=== PATIENT | female | born 1950 | race Caucasian/White ===

== ENCOUNTER → 2016-08-19 | Outpatient (CLI) | payer OTHER, MEDICARE ==
[~2016-08-19] MED LIST: ATEN50TA PO; CARI350T PO; ESTR2TAB4 PO; LEVO100T7 PO; PARO20TA5 PO; TRAZ100T92 PO; [UNRECOGNIZED DRUG - CODE] PO
--- NOTE | 2016-08-22 18:56 | Diagnostic Imaging Report ---
Bilateral screening mammogram The current study was also evaluated with a Computer Aided Detection (CAD) system. Indication: Screening. No current complaints stated on the questionnaire. COMPARISON: 05/15/15. FINDINGS: The breasts are composed of scattered fibroglandular densities. There is postbiopsy changes with biopsy clip and mass in the lateral aspect of the left breast seen. It appears slightly more prominent compared to the 05/15/2015 and related to postbiopsy changes. 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 There is also suggestion of a focus of intraductal papilloma The right breast demonstrates no adverse development. IMPRESSION: Essentially stable mass in the lateral aspect of the left breast with postbiopsy changes seen. 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 Correlate clinically. ACR BI-RADS Category 2: Benign findings. Result letter will be mailed to the patient. Note: At least 10% of breast cancer is not imaged by mammography. Dictated by: Dictated on workstation # [id number]
== END ==
LOC: RAD 13:47
PROVIDERS: ATTEND Physician Assistant
DX: Z12.31 Encounter for screening mammogram for malignant neoplasm of breast (principal)
CPT/HCPCS: 77067

== ENCOUNTER → 2017-09-01 | Outpatient (CLI) | payer OTHER, MEDICARE ==
--- NOTE | 2017-09-04 12:21 | Diagnostic Imaging Report ---
INDICATION: Routine screening. COMPARISON: 08/19/2016 and 05/15/2015. TECHNIQUE: Screening digital mammography was performed bilaterally with a Computer Aided Detection (CAD) system. FINDINGS: Scattered fibroglandular densities are identified bilaterally. The area of nodularity in the lateral left breast with associated biopsy clip is again noted. No new mass or malignant appearing microcalcifications are seen. The axillae are unremarkable. IMPRESSION: No mammographic features suspicious for malignancy are identified. ACR BI-RADS Category 2: Benign findings. Result letter will be mailed to the patient. Note: At least 10% of breast cancer is not imaged by mammography. Dictated by: Dictated on workstation # [id number]
== END ==
LOC: RAD 15:01
PROVIDERS: ATTEND Physician Assistant
DX: Z12.31 Encounter for screening mammogram for malignant neoplasm of breast (principal)
CPT/HCPCS: 77067

== ENCOUNTER → 2018-10-19 | Outpatient (CLI) | payer BC, MEDICARE ==
[~2018-10-19] MED LIST changes: +TRAZ-190 PO; -TRAZ100T92 PO
--- NOTE | 2018-10-23 09:54 | Diagnostic Imaging Report ---
EXAMINATION: Digital mammogram screening with 3D tomosynthesis and CAD. INDICATION: Screening. COMPARISON: This study is compared to the prior exams of 05/15/2015, 06/30/2015, 08/19/2016, and 09/01/2017. PERSONAL HISTORY: At this time, there are no current complaints. FINDINGS: The current study was also evaluated with a Computer Aided Detection (CAD) system. FINDINGS: There are scattered fibroglandular densities in both breasts which could obscure a lesion. Overall, there does not appear to have been any significant change when compared to the prior exam. No primary or secondary sign of malignancy is noted. The stereotactic clip and the nodular density in the upper-outer aspect of the left breast seen previously are again evident and no different. IMPRESSION: There is no radiographic evidence for malignancy. ACR BI-RADS Category 1: Negative. Result letter will be mailed to the patient. Note: At least 10% of breast cancer is not imaged by mammography. Dictated on workstation # [id number]
== END ==
LOC: RAD 14:26
PROVIDERS: ATTEND Physician Assistant
DX: Z12.31 Encounter for screening mammogram for malignant neoplasm of breast (principal)
CPT/HCPCS: 77067

== ENCOUNTER → 2022-01-28 | Outpatient (CLI) | payer BC, MEDICARE ==
[~2022-01-28] MED LIST changes: -TRAZ-190 PO; +TRAZ-227 PO
--- NOTE | 2022-01-31 09:29 | Diagnostic Imaging Report ---
INDICATION: Routine screening. COMPARISON: 10/19/2018 and 09/01/2017. TECHNIQUE: 2D and 3D bilateral screening mammography was performed with CAD. FINDINGS: Both breasts are heterogeneously dense, limiting the sensitivity of mammography. The nodular densities in both breasts appear stable. A biopsy clip in the upper left breast is again noted. No new mass or malignant-appearing microcalcifications are seen. The axillae are unremarkable. IMPRESSION: No mammographic features suspicious for malignancy are identified. ACR BI-RADS Category 2: Benign findings. Result letter will be mailed to the patient. Note: At least 10% of breast cancer is not imaged by mammography. Dictated by: Dictated on workstation # [id number]
== END ==
LOC: RAD 14:01
PROVIDERS: ATTEND Physician Assistant
DX: Z12.31 Encounter for screening mammogram for malignant neoplasm of breast (principal)
CPT/HCPCS: 77063; 77067

== ENCOUNTER 2022-05-19 08:15 | Outpatient (CLI) | payer BC, MEDICARE ==
[~2022-05-19] VITALS: Ht 165.1 cm; Wt 54.0 kg
== END 2022-05-20 10:15 | disposition home or self-care (01) ==
LOC: PREOP 08:15
PROVIDERS: ATTEND Surgery
DX: Z01.818 Encounter for other preprocedural examination (principal)

== ENCOUNTER 2022-05-26 10:20 | Day surgery (SDC) | payer BC, MEDICARE ==
--- NOTE | 2022-05-20 10:42 | HISTORY AND PHYSICAL ---
DATE OF SERVICE: 05/26/2022 ATTENDING ENTERPRISE SALES EXECUTIVE: RIO Bradley. HISTORY OF PRESENT ILLNESS: The patient is a 72-year-old female known to us. She was initially seen in 05/2016 for a screening colonoscopy as well as a personal history of polyps and was found to have a chronic stage II external and internal hemorrhoids, mild sigmoid diverticulosis and no polyps identified. She does have a family history of colon cancer with her mother having the disease. On today's office visit, she has a multitude of different issues. The first thing that she does need a followup screening colonoscopy for her last colonoscopy was greater than five years ago and she does have a first-degree family history. She does have a history of constipation and takes stool softeners daily. No red blood per rectum, no dark tarry stools. Second issue being dysphagia and history of gastroesophageal reflux disease for the past year and a half. She states that this has worsened to the point where dry breads feel as they are being caught in the substernal region and then she will feel a pressure sensation that would not remit and eventually will reduce on its own or else she will regurgitate. She does not report any hematemesis, no coffee ground emesis. The third issue is bilateral inguinal hernia pain on an intermittent basis. She states that this has been going on now for approximately six months and was initially intermittent; however, now occurs on a daily basis. She states that doing some activities or standing long periods of time may make this worse. Upon examination and Valsalva, there is a palpable bilateral inguinal hernias with the right being slightly larger than the left. There are both easily reducible. The fourth issues encompasses also a previous scar from a total hysterectomy in 1991, which was an infraumbilical midline incision. Since 2012 she has lost a significant amount of weight with her highest weight being in the 180s; however, now she is 122 pounds. From the midline incision, the skin is tethered to the fascia, which does cause a pulling sensation and pain from the redundant skin. She states that this does also cause a significant amount of pain. There are no hernias within the previous midline incision. PAST MEDICAL HISTORY: Hypertension, hypercholesterolemia, hypothyroid, fibromyalgia, degenerative joint disease, migraine headaches, gastroesophageal reflux disease, constipation. PAST SURGICAL HISTORY: Open total hysterectomy in 1991, left plantar fasciotomy in 1993; right 1996, right foot bunionectomy and Menjivar's neuroma resection in 2001, right great toe pinning in 2003, bladder sling and rectocele repair in 2003, left total knee arthroplasty in 2013, intraocular lens, left eye lens placement 01/2012, right eye 02/2012, left total knee arthroplasty in 2013. ALLERGIES: ERYTHROMYCIN, NAPROSYN, NABUMETONE, SULFA, DOXYCYCLINE. MEDICATIONS: Codeine 30 mg b.i.d., atenolol 50 mg daily, Carisoprodol 350 mg daily, estradiol 2 mg daily, levothyroxine 100 mg daily, paroxetine 20 mg daily, trazodone 100 mg each day at bedtime. SOCIAL HISTORY: Negative smoke, negative alcohol. FAMILY HISTORY: Mother, colon cancer. Father, hypertension, stroke, congestive heart failure. Paternal aunt x2 with breast cancer. VITAL SIGNS: Blood pressure 110/62, current weight 122.0 pounds at 5 feet 5 inches. REVIEW OF SYSTEMS: Well-nourished female currently in no acute distress. She is not experiencing any shortness of breath or difficulty breathing. No chest pain, palpitations, diaphoresis. No nausea or vomiting, no diarrhea or constipation with dysphagia for dry breads and crackers. History of constipation, no red blood per rectum, no dark tarry stools. History of bilateral inguinal hernia, bilateral inguinal pain, especially upon standing for long periods of time as well as exertion. No fever or chills, no recent inadvertent weight loss. All other review of systems negative. PHYSICAL EXAMINATION: CHEST: Good breath sounds bilaterally. HEART: Regular, no murmurs. EXTREMITIES: No lower extremity edema, negative Homans sign. HEENT: No scleral icterus. NECK: No cervical lymphadenopathy. ABDOMEN: Soft, nondistended. There is bilateral inguinal region pain. Upon Valsalva, there is a palpable mass that reduces spontaneously with the right being larger than the left. She also has an infraumbilical midline incision and due to her weight loss the skin is tethered to what appears to be closer to the fascia with a pulling sensation from the remainder of the surrounding skin, which does cause a significant amount of pain. ASSESSMENT AND PLAN: A 72-year-old female with gastroesophageal reflux disease, likely esophageal stricture, need for screening colonoscopy due to her first-degree family history of colon cancer, symptomatic reducible bilateral inguinal hernias as well as a symptomatic infraumbilical scar from a previous total hysterectomy and significant weight loss. We will schedule her for an EGD with biopsy and balloon dilatation, colonoscopy, laparoscopic bilateral inguinal hernia repair with mesh as well as infraumbilical scar revision under general anesthesia. DocumentID: [id number] Dictated Date: 05/20/2022 00:00:00 Vest Tailor Date: 05/20/2022 03:51:00 Dictated By: SURI CAUSEY MD [facility]
[~2022-05-26] VITALS: Ht 165.1 cm; Wt 52.5 kg
[2022-05-26] VITALS (14 sets, daily range): BP systolic 105–129; BP diastolic 32–57
--- NOTE | 2022-05-26 10:56 | Progress Note-Pre Operative ---
Pre-Operative Progress Note Date H&P Reviewed: May 26, 2022 Time H&P Reviewed: 10:55 History & Physical: H&P Reviewed, Patient Examed, No changes noted Pre-Operative Diagnosis: Bilateral inguinal hernias, screening colonoscopy, reflux CHAPIS HERNANDEZ APRN May 26, 2022 10:56
[2022-05-26] MEDS ORDERED: HYDR-3817 PO (10:57)
--- NOTE | 2022-05-26 10:58 | Discharge Inst-Surgical ---
D/C Lap Instructions-KIDO Reconcile Patient Problems Problems Reviewed?: Yes New, Converted, or Re-Newed RX: RX on Chart Follow Up Appt in 2 weeks Activity as tolerated No driving for 24 hours No driving while on pain medications Incentive Spirometry use every 2 hours while awake Regular Diet Symptoms to Report: Fever over 101 degree F, Nausea/Vomiting Infection Signs and Symptoms to report: Increased redness, Foul odor of wound, Increased drainage Bathing instructions: May shower Operative Area Clean/Dry; Keep incision clean/dry If any problems/questions: Contact your physician or go to Emergency Room CHAPIS HERNANDEZ APRN May 26, 2022 10:58
[2022-05-26] MEDS ORDERED: ACETAMINOPHEN 325 MG TABLET PO PRN (11:00)
[2022-05-26] MEDS ORDERED: HYDROcodone/APAP 5 MG/325 MG (LORTAB) TAB PO ONE (11:00)
[2022-05-26] MEDS ORDERED: ONDANSETRON 4 MG/2 ML (SDV) Z0FRAN IVP PRN ×2 (11:00→15:00)
[2022-05-26] MEDS ORDERED: morphine INJ 10 MG/ML 1ML (SYR OR VIAL) IVP PRN (11:00)
[2022-05-26] MEDS ORDERED: ceFAZolin INJECTION 1,000 MG in NS (IVPB) 50 ML IV ONE (11:00)
[2022-05-26] MEDS: LACTATED RINGERS 1,000 ML IV PRN ×3 (11:01→23:36)
[2022-05-26] MEDS ORDERED: MIDAZOLAM 2 MG/2 ML (VERSED) VIAL IVP ONE (11:15)
[2022-05-26] MEDS ORDERED: BUP/EPI 0.5% 1:200,000 (MARCAINE) 10ML VIAL IJ ONE (11:56)
[2022-05-26] MEDS ORDERED: LIDOCAINE PF 2% 5 ML (XYLOCAINE) VIAL ONE (12:30)
[2022-05-26] MEDS ORDERED: ONDANSETRON 4 MG/2 ML (SDV) Z0FRAN ONE (12:30)
[2022-05-26] MEDS ORDERED: ROCURONIUM 10 MG/ML 5 ML SYRINGE IV ONE (12:30)
[2022-05-26] MEDS ORDERED: fentaNYL INJ 100 MCG/2 ML AMP ONE (12:30)
[2022-05-26] MEDS ORDERED: proPOfol 200 MG/20 ML (DIPRIVAN) VIAL IV ONE (12:30)
[2022-05-26] MEDS ORDERED: GLYCOPYRROLATE 0.2 MG/ML (ROBINUL) 2 ML VIAL ONE ×2 (12:30→13:42)
[2022-05-26] MEDS ORDERED: NEOSTIGMINE (BLOXIVERZ ) 1 MG/1ML 10 ML VIAL ONE (13:42)
--- NOTE | 2022-05-26 14:35 | Progress Note-Post Operative ---
Post-Operative Progess Note Surgeon (s)/Coffee Brewer (s) Surgeon Dr. Rom Ivy M.D. Coffee Brewer: Rishabh Hernandez MACHINE PACK ASSEMBLER Pre-Operative Diagnosis Bilateral inguinal hernias, screening colonoscopy, reflux Post-Operative Diagnosis Bilateral indirect inguinal hernias, symptomatic infraumbilcal scar 11 x 2 cm, reflux esophagitis grade B, small hiatal hernia 1.5 cm, mild gastritis with pyloric stricture, stage II external and internal hemorrhoids Procedure & Operative Findings Date of Procedure 05/26/22 Procedure Performed/Findings Laparoscopoic bilateral inguinal hernia repair with mesh, revision symptomatic infraumbilical scar with bilateral flap reconstruction 11 x 2 cm, EGD with biopsy and balloon dilation, colonoscopy Anesthesia Type GET Estimated Blood Loss Estimated blood loss (mL): Minimal Specimens/Packing Specimens Removed 1) Antrum 2) GE Junction RISHABH HERNANDEZ MACHINE PACK ASSEMBLER May 26, 2022 14:35
[2022-05-26] MEDS ORDERED: SEVOFLURANE (ULTANE) 15 ML INHAL SOLN ONE (14:40)
--- NOTE | 2022-05-26 14:56 | Anesthesia-General Post-Op ---
General Post Op Complications Complications None Follow Up Care/Instructions Patient Instructions None needed. Anesthesia/Patient Condition Patient Condition Patient is doing well in PACU with no complaints, stable vital signs, no apparent adverse anesthesia problems. No complications reported per nursing. GABRIEL GONZÁLES DO May 26, 2022 14:56
[2022-05-26] MEDS ORDERED: morphine INJ 10 MG/ML 1ML (SYR OR VIAL) IVP ONE (15:00)
[2022-05-26] MEDS ORDERED: HYDROmorphone 2 MG/ML VIAL (DILAUDID) IV ONE (15:00)
--- NOTE | 2022-05-27 00:14 | OPERATIVE REPORT ---
DATE OF SERVICE: 05/26/2022 ATTENDING PRIMARY SIDE LASTER STAPLE: Jai Babin PREOPERATIVE DIAGNOSES: Symptomatic bilateral inguinal hernia, symptomatic infraumbilical scar from an open total hysterectomy, dysphagia, gastroesophageal reflux disease, screening colonoscopy with family history of colon cancer. POSTOPERATIVE DIAGNOSES: Bilateral small indirect inguinal hernias. Symptomatic infraumbilical scar 10 x 2 cm in size. Reflux esophagitis(grade B), small hiatal hernia(1.5cm), moderate gastritis with severe pyloric stricture. Chronic stage 2 ext and int hemorrhoids, small rectal polyp(2mm). PROCEDURE: Laparoscopic bilateral inguinal hernia repair with mesh. EGD with biopsy and balloon dilatation, colonoscopy with biopsy. Infraumbilical scar revision with tissue transfer and complex closure(10x2cm). SURGEON: Suri Ivy MD. HEAD SILVERMAN: Rishabh Liz APRN. ANESTHESIA: General endotracheal. ESTIMATED BLOOD LOSS: Minimal. FINDINGS: Bilateral small indirect inguinal hernias. Symptomatic infraumbilical scar 10 x 2 cm in size. DISPOSITION: The patient tolerated the procedure well. INDICATIONS: The patient is a 72-year-old female known to us. She was initially seen for a screening colonoscopy and a personal history of polyps as well as first-degree family history of colon cancer with her mother having the disease. She was recently seen in the office with a multitude of issues. First thing is that she needed a followup screening colonoscopy being that her last colonoscopy was greater than 5 years ago. She does report a history of constipation. Does take stool softeners. The second issue being dysphagia and gastroesophageal reflux disease. The third issue being bilateral inguinal region pain and on physical examination, reducible bilateral inguinal hernias, which were symptomatic and painful to palpation. The fourth issue being a symptomatic scar. She has lost a significant amount of weight over time. She has an infraumbilical scar from open total hysterectomy 10 x 2 cm in size, which pulls on the scar causing pain. Her highest weight was in the 180s in 2012. She is now 122 pounds. DESCRIPTION OF PROCEDURE: The patient was brought to the operating room, laid supine on the table. After adequate IV pain and sedative medications and general endotracheal intubation, the abdomen was prepped and draped in standard surgical fashion. A 0.5% Marcaine with epinephrine was used to anesthetize the overlying skin in the infraumbilical rim and a crescent-shaped skin incision made using a #15 blade. The towel sharp clamp was used to retract the abdominal wall anteriorly and a Veress needle inserted with opening pressure of 0 mmHg. The abdomen was then insufflated to 15 mmHg pressure. The Veress needle removed and a 10 mm port was placed followed by a 10 mm 45-degree angle laparoscope visualized the peritoneal cavity. A 4-quadrant abdominal exploration was performed. There were small bilateral indirect inguinal hernias. The remainder of the small bowel, colon appeared normal. Under direct visualization, we then proceeded to place bilateral 5 mm ports under direct visualization after the skin and peritoneal lining were anesthetized using 0.5% Marcaine and skin incision was made using a 15 blade. The patient was then placed in Trendelenburg position. We first proceeded with repair of the right inguinal hernia by opening the peritoneal lining starting laterally towards the conjoined tendon and inguinal ligament. We then proceeded medially until the Facundo's ligament was identified. We then proceeded with inferior dissection encompassing the hernia and also taking the round ligament. Good hemostasis was observed. A medium size 3DMax polypropylene mesh was then placed into the defect and tacked to Facundo's ligament with an absorbable tack in the inguinal ligament laterally. The peritoneal lining was then placed over the mesh and a few tacks were placed to hold this in place with visualization and good hemostasis. In a similar manner, we proceeded with repair of the left inguinal hernia. The peritoneal lining was opened laterally towards the conjoined tendon and inguinal ligament laterally using the Sonicision. We then proceeded medially until Facundo's ligament was reached. We then proceeded with inferior dissection encompassing the hernia sac as well as the round ligament with the Sonicision with visualization with good hemostasis. A 3DMax polypropylene mesh was then placed into the defect and tacked to Facundo's ligament with an absorbable tack medially and the inguinal ligament laterally. The peritoneal lining was then placed over the mesh and a few absorbable tacks were placed to hold this and placed with visualization with good hemostasis. Good hemostasis was observed. The 10 mm port site fascia and peritoneum were then closed under direct visualization using a Grant-Lien device and 0 Vicryl suture. The abdomen was desufflated and the remaining ports were removed. We then proceeded with excision of the previous infraumbilical scar, which was 10 x 2 cm using a 15 blade. We then proceeded to create bilateral flaps to the level of the fascia using electrocautery with visualization with good hemostasis. Once totally freed from the scar, we then proceeded with reapproximation of the subcutaneous tissue using 3-0 Vicryl interrupted sutures. The skin was closed using 4-0 Monocryl running subcuticular suture. All the wounds were then cleaned and covered with Dermabond. We then proceeded with an EGD and the mouthpiece was applied and the endoscope was placed in the mouth to visualize the pharynx and hypopharyngeal region. Vocal cords, epiglottis and vallecula identified and appeared to be normal. The endoscope was then intubated into the esophagus. Esophagus was insufflated. The endoscope was then advanced through the first, second and third portion of the esophagus at the level of the GE junction. Reflux esophagitis, Valley grade B identified. There were no strictures in this region. A biopsy was taken with forceps with visualization with good hemostasis. The endoscope was then advanced in the stomach. The endoscope was retroflexed, visualizing a small hiatal hernia approximately 1.5 cm in size. A very tight pyloric stricture was identified. Multiple attempts were made to place the scope through this, however, we were unable to, however, there was direct visualization of the pylorus and we were able to get the balloon into the pylorus. We then proceeded with dilatation in a graded stepwise fashion from 2,4 and eventually 5 atmospheres of pressure for approximately 17 mm in luminal diameter with moderate resistance and left this in place for approximately 60 seconds. The balloon was then desufflated and removed with visualization with good hemostasis as well as no mucosal tears. The endoscope was then advanced into the pylorus and the first and second portions of the duodenum, which appeared normal with no distal obstructions. A biopsy was also taken of the antrum to rule out H. pylori with visualization with good hemostasis. The endoscope was then slowly withdrawn, taking a second look and suction of residual air with no additional findings. The patient was then placed in a frogleg position and a digital rectal examination was performed, which revealed chronic stage II external and internal hemorrhoids. Digital rectal examination was performed where normal sphincter tone was felt and there were no palpable masses. The endoscope was then intubated into the anus and rectum gently insufflated. The endoscope was then advanced through the valves of Miranda of the rectum with small hyperplastic polyp approximately 2 mm in size was identified. This was biopsied and destroyed with forceps and electrocautery. The endoscope was then advanced through the sigmoid colon. There were no diverticulosis was identified. We then proceeded through the remainder of the descending, transverse and ascending colon to the cecum, which were normal. The endoscope was slowly withdrawn taking a second look and suctioning all residual air with no additional findings. The patient tolerated the procedure well. POSTOPERATIVE PLAN: We will start IV and oral pain medication as well as a clear liquid diet. Once he was tolerating clears with good pain control with oral pain medications, ambulating well and was discharged to her home where she will be instructed to do no heavy lifting or exertion for the next 2 weeks. Job ID: [id number] DocumentID: [id number] Dictated Date: 05/26/2022 14:54:05 Tube Pusher Date: 05/27/2022 00:12:00 Dictated By: SURI IVY MD MTDD
[2022-05-27 03:16] VITALS: BP 127/58
[2022-05-27 07:56] VITALS: BP 111/61
--- NOTE | 2022-05-27 12:26 | Progress Note ---
Subjective Date Seen by a Provider: May 27, 2022 Time Seen by a Provider: 10:30 Subjective/Events-last exam doing well. no SOB with normal O2 sat. pain controlled. ambulating well. Objective Exam Vital Signs Date Time Temp Pulse Resp B/P (MAP) Pulse Ox O2 Delivery O2 Flow Rate FiO2 05/27/22 08:00 Room Air 05/27/22 07:56 36.5 76 18 111/61 (78) 100 Room Air 05/27/22 03:16 36.0 81 18 127/58 (81) 99 Nasal Cannula 2.00 05/26/22 23:23 35.6 85 18 105/50 (68) 99 Nasal Cannula 2.00 05/26/22 20:07 35.9 87 18 125/57 (79) 100 Nasal Cannula 2.00 2.00 05/26/22 20:00 Nasal Cannula 2.00 05/26/22 19:24 35.9 87 18 125/57 (79) 100 Nasal Cannula 2.00 05/26/22 17:23 35.9 73 10 127/55 97 Nasal Cannula 2.00 05/26/22 16:20 35.6 72 12 129/50 96 Room Air 0.00 05/26/22 15:50 Room Air 05/26/22 15:50 35.5 76 14 128/54 96 Room Air 05/26/22 15:50 36.3 20 128/50 (76) 94 Room Air 05/26/22 15:45 Room Air 05/26/22 15:40 20 128/50 (76) 95 Room Air 05/26/22 15:30 OxyMask 2.00 05/26/22 15:30 20 118/56 (76) 99 OxyMask 2.00 05/26/22 15:20 20 122/54 (76) 99 OxyMask 2.00 05/26/22 15:15 OxyMask 2.00 05/26/22 15:10 20 129/57 (81) 100 OxyMask 2.00 05/26/22 15:00 20 120/52 (74) 98 OxyMask 3.00 05/26/22 15:00 OxyMask 5.00 05/26/22 14:50 20 119/50 (73) 98 OxyMask 5.00 05/26/22 14:45 OxyMask 5.00 05/26/22 14:45 36.3 20 115/48 (70) 100 OxyMask 5.00 I & O 05/27/22 07:00 Intake Total 2810 ml Output Total 450 ml Balance 2360 ml Capillary Refill : Less Than 3 Seconds General Appearance: No Apparent Distress HEENT: PERRL/EOMI Neck: Full Range of Motion Respiratory: Chest Non Tender, Lungs Clear Cardiovascular: Regular Rate, Rhythm Gastrointestinal: normal bowel sounds, soft, tenderness Extremity: Normal Capillary Refill Neurologic/Psychiatric: Alert, Oriented x3 Skin: Normal Color Lymphatic: No Adenopathy Assessment/Plan Assessment/Plan Assess & Plan/Chief Complaint s/p laparoscopic bilat ing hernia repair, EGD with balloon dilatation and colonoscopy. ambulate. regular diet. home soon. SURI CAUSEY MD May 27, 2022 12:26
== END 2022-05-27 11:30 | disposition home or self-care (01) ==
LOC: SDC 10:20 → 4TH 18:10 → SDC 05-27 11:30
PROVIDERS: ATTEND Surgery
DX: Z12.11 Encounter for screening for malignant neoplasm of colon (principal); K40.20 Bilateral inguinal hernia, without obstruction or gangrene, not specified as recurrent; K21.00 Gastro-esophageal reflux disease with esophagitis, without bleeding; K44.9 Diaphragmatic hernia without obstruction or gangrene; K29.70 Gastritis, unspecified, without bleeding; K31.1 Adult hypertrophic pyloric stenosis; K64.1 Second degree hemorrhoids; K64.4 Residual hemorrhoidal skin tags; D12.8 Benign neoplasm of rectum; L90.5 Scar conditions and fibrosis of skin; Z80.0 Family history of malignant neoplasm of digestive organs; Z86.010 Personal history of colon polyps
CPT/HCPCS: 14001; 43239; 43245; 45380; 49650; 87081; C1781 ×2; 88305

== ENCOUNTER 2022-07-20 05:41 | Outpatient (CLI) | payer BC, MEDICARE ==
[~2022-07-20] VITALS: Ht 162.6 cm; Wt 57.5 kg
[~2022-07-20 05:41] MED LIST changes: +HYDR-3817 PO
[2022-07-27] MEDS ORDERED: PANT40TA2 PO (12:26)
== END 2022-07-26 16:47 | disposition home or self-care (01) ==
LOC: PREOP 05:41
PROVIDERS: ATTEND Surgery
DX: Z01.818 Encounter for other preprocedural examination (principal)

== ENCOUNTER 2022-07-27 12:15 | Day surgery (SDC) | payer BC, MEDICARE ==
[~2022-07-27] VITALS: Ht 163 cm; Wt 57.5 kg
[2022-07-27] VITALS (7 sets, daily range): BP systolic 83–120; BP diastolic 43–62
[2022-07-27] MEDS ORDERED: LACTATED RINGERS 1,000 ML IV STA (12:19)
--- NOTE | 2022-07-27 12:25 | Progress Note-Pre Operative ---
Pre-Operative Progress Note Date of Available H&P: Jul 27, 2022 Date H&P Reviewed: Jul 27, 2022 Time H&P Reviewed: 12:00 History & Physical: No changes noted Pre-Operative Diagnosis: dysphagia, GERD SURI CAUSEY MD Jul 27, 2022 12:25
[2022-07-27] MEDS ORDERED: PANT40TA2 PO (12:26)
--- NOTE | 2022-07-27 12:27 | Discharge Inst-Surgical ---
D/C Lap Instructions-KIDO New, Converted, or Re-Newed RX: RX on Chart Follow Up Activity as tolerated High Fiber Diet 25g or more per day Avoid Alcohol, Caffeine, Spicy [place] and Acid foods. Drink 64 fluid oz or more of fluids per day. Symptoms to Report: Fever over 101 degree F, Nausea/Vomiting If any problems/questions: Contact your physician or go to Emergency Room SURI CAUSEY MD Jul 27, 2022 12:27
[2022-07-27] MEDS ORDERED: ONDANSETRON 4 MG (ZOFRAN) ORAL DISSOLVE TAB PO PRN (12:30)
[2022-07-27] MEDS ORDERED: LIDOCAINE JELLY 2% 6 ML SYRINGE MM PRN (12:30)
[2022-07-27] MEDS ORDERED: HURRICAINE EXT TUBE (BENZOCAINE) XX PRN (12:30)
[2022-07-27] MEDS ORDERED: ONDANSETRON 4 MG/2 ML (SDV) Z0FRAN IVP PRN (12:30)
[2022-07-27] MEDS ORDERED: PROPOFOL INJECTION 50 ML IV ONE (13:46)
[2022-07-27] MEDS ORDERED: MIDAZOLAM 2 MG/2 ML (VERSED) VIAL ONE (13:46)
[2022-07-27] MEDS ORDERED: LIDOCAINE JELLY 2% 6 ML SYRINGE ONE (13:56)
--- NOTE | 2022-07-27 14:24 | Anesthesia-General Post-Op ---
MAC Patient Condition Mental Status/LOC: Same as Preop Cardiovascular: Satisfactory Nausea/Vomiting: Absent Respiratory: Satisfactory Pain: Controlled Complications: Absent Post Op Complications Complications None Follow Up Care/Instructions Patient Instructions None needed. Anesthesiology Discharge Order Discharge Order Patient is doing well, no complaints, stable vital signs, no apparent adverse anesthesia problems. No complications reported per nursing. MARYCHUY SUE CRNA Jul 27, 2022 14:24
--- NOTE | 2022-07-27 14:41 | Progress Note-Post Operative ---
Post-Operative Progess Note Surgeon (s)/Training Executive (s) Surgeon SURI CAUSEY MD Training Executive: none Pre-Operative Diagnosis dysphagia, GERD Post-Operative Diagnosis reflux esophagitis(grade C), dist esoph stricture, small HH(1.5cm), retained gastric food substance, severe pyloric stricture. Procedure & Operative Findings Date of Procedure 07/27/22 Procedure Performed/Findings EGD with bx and balloon dilatation GE jxn and antrum. Anesthesia Type mac Estimated Blood Loss Estimated blood loss (mL): minimal Specimens/Packing Specimens Removed ge jxn, antrum SURI CAUSEY MD Jul 27, 2022 14:41
--- NOTE | 2022-07-28 00:49 | OPERATIVE REPORT ---
DATE OF SERVICE: 07/27/2022 ATTENDING PRIMARY COIL CUTTER: Mark PATE PREOPERATIVE DIAGNOSES: Dysphagia, history of esophageal and pyloric stricture. POSTOPERATIVE DIAGNOSES: Reflux esophagitis [place] grade C with a mild distal esophageal stricture, small hiatal hernia 1.5 cm in size. Retained food substance within the stomach. Severe pyloric stricture. No distal obstructions. PROCEDURE: EGD with biopsy and balloon dilatation of the pylorus and the gastroesophageal junction. SURGEON: Suri Causey MD ANESTHESIA: Monitored anesthesia care. ESTIMATED BLOOD LOSS: Minimal. FINDINGS: Reflux esophagitis [place] grade C with a mild distal esophageal stricture, small hiatal hernia 1.5 cm in size. Retained food substance within the stomach. Severe pyloric stricture. No distal obstructions. DISPOSITION: The patient tolerated the procedure well. INDICATIONS: The patient is a 72-year-old female known to us. She had reported noticing weight loss over time and has had issues with gastroesophageal reflux disease. On 05/26/2022, she underwent a laparoscopic bilateral inguinal hernia repair as well as an EGD and she was found to have reflux esophagitis, distal esophageal stricture, small hiatal hernia, moderate gastritis as well as a severe pyloric stricture. She then underwent dilatation of the GE junction as well as to the pylorus to 17 mm in luminal diameter. She again continues to have issues with dysphagia. DESCRIPTION OF PROCEDURE: The patient was brought to the endoscopy suite and laid in the left lateral decubitus position. After adequate IV pain and sedative medications and monitored anesthesia care, the mouthpiece was applied. The endoscope was placed in the mouth to visualize the pharynx hypopharyngeal region. Vocal cords, epiglottis and vallecula identified and appeared to be normal. The endoscope was then gently intubated. The esophageal opening and esophagus insufflated. The endoscope was then advanced through the first, second and third portions of the esophagus. At the level of the GE junction, a reflux esophagitis, [place] grade C identified with a mild distal esophageal stricture. A biopsy was taken with forceps and visualization with good hemostasis. The endoscope was then advanced into the stomach. The endoscope was retroflexed, visualizing the small hiatal hernia 1.5 cm in size with no changes from previous EGD. There was significant amount of retained food substance within the stomach and again the severe pyloric stricture was identified. Biopsy was taken of the antrum to rule out H. pylori with visualization of good hemostasis. We were able to place the tip of the scope into the pylorus and the balloon was directed into the duodenum. We then proceeded with a graded dilatation from 2, 4, then eventually 5.5 atmospheres of pressure, approximately 17.5 mm in luminal diameter with moderate resistance and left this in place for approximately 60 seconds. The balloon was then desufflated and removed with visualization of good hemostasis as well as no mucosal tears. The endoscope was once again advanced through the pylorus and the first and second portions of the duodenum, which appeared normal with no distal obstructions. The same balloon was then placed into the stomach and pulled back to the GE junction stricture. We then again proceeded with graded dilatation from 2, 4, then eventually 5.5 atmospheres of pressure with moderate resistance or 17.5 mm in luminal diameter and left this in place for approximately 60 seconds. The balloon was then desufflated and removed with visualization and good hemostasis as well as no mucosal tears. The endoscope was then slowly withdrawn while taking a second look and suctioning of any residual air with no additional findings. The patient tolerated the procedure well. She will need to continue with graded dilatation more on a frequent basis due to the severity of the pyloric stricture. We will have her schedule for an EGD and dilatation of the GE junction as well as the pylorus in 4 weeks. She also needs to continue with medical management with small more frequent meals, avoidance eating at night; as well as head elevation while lying supine. She also needs to avoid caffeinated beverages, spicy, greasy, and acidic foods. She also needs to continue with a PPI acid threader on a b.i.d. basis. If she continues to have severe pyloric stricture, she may need to have a drainage procedure, which would encompass pyloroplasty with Heineke-Mikulicz procedure or gastrojejunal bypass. We will again have her schedule for repeat dilatation in 4 weeks. Job ID: [id number] DocumentID: [id number] Dictated Date: 07/27/2022 14:31:18 Head Inspector Date: 07/28/2022 00:47:00 Dictated By: SURI CAUSEY MD [facility]
== END 2022-07-27 15:40 | disposition home or self-care (01) ==
LOC: ENDO 12:15
PROVIDERS: ATTEND Surgery
DX: K21.00 Gastro-esophageal reflux disease with esophagitis, without bleeding (principal); K22.2 Esophageal obstruction; K44.9 Diaphragmatic hernia without obstruction or gangrene; K31.1 Adult hypertrophic pyloric stenosis; Z79.899 Other long term (current) drug therapy
CPT/HCPCS: 88305

== ENCOUNTER 2022-08-17 05:37 | Outpatient (CLI) | payer BC, MEDICARE ==
[~2022-08-17] VITALS: Ht 163 cm; Wt 57.5 kg
[~2022-08-17 05:37] MED LIST changes: +PANT40TA2 PO
[2022-08-17] MEDS ORDERED: PANT40TA52 PO (10:22)
[2022-08-17] MEDS ORDERED: [UNRECOGNIZED DRUG - CODE] PO (10:22)
== END 2022-08-17 10:27 | disposition home or self-care (01) ==
LOC: PREOP 05:37
PROVIDERS: ATTEND Surgery
DX: Z01.818 Encounter for other preprocedural examination (principal)

== ENCOUNTER 2022-08-24 10:16 | Day surgery (SDC) | payer BC, MEDICARE ==
--- NOTE | 2022-08-16 07:19 | HISTORY AND PHYSICAL ---
DATE OF SERVICE: 08/24/2022 DATE OF ADMISSION: 08/24/2022. ADMITTING PRIMARY CARE PHYSICIAN: RIO Bradley HISTORY OF PRESENT ILLNESS: The patient is a 72-year-old female known to us. She has noticed weight loss as well as a longstanding history of gastroesophageal reflux disease. On 05/26/2022, she underwent a laparoscopic bilateral inguinal hernia repair as well as an EGD and was found to have a significant distal esophageal stricture and a severe pyloric stricture. She underwent a balloon dilatation of both the GE junction as well as the pyloric stricture, both to approximately 17 mm. Due to the severity of the stricture, we had her followup and on 07/27/2022, she again underwent an EGD and was found to have a mild distal esophageal stricture; however, severe pyloric stricture. We were able to dilate the pylorus to approximately 17.5 mm in luminal diameter and the GE junction to approximately 17.5 mm as well. Due to the severe nature of the pyloric stricture and continued symptomatology with retained food substance was identified in the last EGD. Recommendation is to proceed with more frequent EGD as well as balloon dilatation in hopes of less invasive process for rectifying the distal obstruction; however, if endoscopic means are not effective or long-term enough, she may need a drainage procedure, which may encompass a pyloroplasty or a gastrojejunostomy. For now, we will proceed with a repeat dilatation. PAST MEDICAL HISTORY: Hypertension, hypercholesterolemia, hypothyroid, fibromyalgia, degenerative joint disease, migraine headaches, gastroesophageal reflux disease with history of distal esophageal stricture and severe pyloric stricture. PAST SURGICAL HISTORY: Total hysterectomy 1991. Left foot plantar fasciotomy 1993, right plantar fasciotomy 1996, right foot bunionectomy and excision of Menjivar's neuroma 2001, right great toe pinning 2003, bladder sling and rectocele repair 2003. Left total knee arthroplasty 2013. Bilateral intraocular lens implant 2011, laparoscopic bilateral inguinal hernia repair 05/2022. ALLERGIES: ERYTHROMYCIN, DOXYCYCLINE, NABUMETONE, SULFA, NAPROXEN. MEDICATIONS: Atenolol 50 mg daily, benzonatate 100 mg daily, clonazepam 0.5 mg daily, estradiol 2 mg b.i.d., levothyroxine 100 mcg daily, esomeprazole 40 mg daily, paroxetine 20 mg daily, trazodone 100 mg daily, carisoprodol 350 mg daily, Protonix 40 mg daily. SOCIAL HISTORY: Negative smoker, negative alcohol. FAMILY HISTORY: Father, cerebrovascular accident. Mother, some form of gastrointestinal cancer. VITAL SIGNS: Blood pressure 136/78. Current weight 126.3 pounds at 5 feet 5 inches, body mass index of 21.0. REVIEW OF SYSTEMS: This is a thin-appearing female, currently in no acute distress. She is not experiencing shortness of breath or difficulty breathing. No chest pain, palpitations, diaphoresis. No nausea, vomiting; however, does have regurgitation and anorexia for long periods of time. No hematemesis, no coffee-ground emesis. No known diarrhea, nor constipation, no red blood per rectum or dark tarry stools. No fever or chills with some weight loss in the past year. PHYSICAL EXAM: LUNGS: Scattered rales bilaterally. HEART: Regular. No murmurs. EXTREMITIES: No lower extremity edema. Negative Homans sign. HEENT: No scleral icterus. No cervical lymphadenopathy. ABDOMEN: Soft, nontender, nondistended. SKIN: Warm and dry. ASSESSMENT AND PLAN: A 72-year-old female with weight loss, history of gastroesophageal reflux disease as well as history of distal esophageal stricture and severe pyloric stricture. She has been undergoing a graded dilatation of both the strictures and we will proceed with this plan in hopes of allowing the pylorus to open a opened up and allow for adequate nutrition through endoscopic means. However, if this does not work, she may need a surgical drainage procedure, which would encompass a pyloroplasty versus a gastrojejunostomy. For now, we will proceed with graded dilatation endoscopically, which we will schedule. Job ID: [id number] DocumentID: [id number] Dictated Date: 08/04/2022 17:51:24 Firmware Architect Date: 08/04/2022 18:53:00 Dictated By: SURI CAUSEY MD
[~2022-08-24] VITALS: Ht 163 cm; Wt 57.5 kg
[~2022-08-24 10:16] MED LIST changes: +PANT40TA52 PO; +[UNRECOGNIZED DRUG - CODE] PO
[2022-08-24] MEDS ORDERED: LACTATED RINGERS 1,000 ML IV STA (10:33)
[2022-08-24 10:42] VITALS: BP 112/47
[2022-08-24] MEDS ORDERED: LIDOCAINE JELLY 2% 6 ML SYRINGE MM PRN (10:45)
[2022-08-24] MEDS ORDERED: HURRICAINE EXT TUBE (BENZOCAINE) XX PRN (10:45)
--- NOTE | 2022-08-24 11:27 | Progress Note-Pre Operative ---
Pre-Operative Progress Note Date of Available H&P: Aug 24, 2022 Date H&P Reviewed: Aug 24, 2022 Time H&P Reviewed: 11:00 History & Physical: No changes noted Pre-Operative Diagnosis: dysphagia with esoph and pyloric stricture SURI CAUSEY MD Aug 24, 2022 11:27
--- NOTE | 2022-08-24 11:28 | Discharge Inst-Surgical ---
D/C Lap Instructions-MARIUM Follow Up Activity as tolerated High Fiber Diet 25g or more per day Avoid Alcohol, Caffeine, Spicy [place] and Acid foods. Drink 64 fluid oz or more of fluids per day. Symptoms to Report: Fever over 101 degree F, Nausea/Vomiting If any problems/questions: Contact your physician or go to Emergency Room SURI CAUSEY MD Aug 24, 2022 11:28
[2022-08-24] MEDS ORDERED: ONDANSETRON 4 MG/2 ML (SDV) Z0FRAN IVP PRN (11:30)
[2022-08-24] MEDS ORDERED: ONDANSETRON 4 MG (ZOFRAN) ORAL DISSOLVE TAB PO PRN (11:30)
[2022-08-24] MEDS ORDERED: proPOfol 200 MG/20 ML (DIPRIVAN) VIAL IV ONE ×2 (12:35→13:14)
[2022-08-24 13:15] VITALS: BP 86/43
--- NOTE | 2022-08-24 13:19 | Anesthesia-General Post-Op ---
MAC Patient Condition Mental Status/LOC: Same as Preop Cardiovascular: Satisfactory Nausea/Vomiting: Absent Respiratory: Satisfactory Pain: Controlled Complications: Absent Post Op Complications Complications None Follow Up Care/Instructions Patient Instructions None needed. Anesthesiology Discharge Order Discharge Order Patient is doing well, no complaints, stable vital signs, no apparent adverse anesthesia problems. No complications reported per nursing. GABRIEL GONZÁLES DO Aug 24, 2022 13:19
[2022-08-24 13:20] VITALS: BP 105/42
[2022-08-24 14:00] VITALS: BP 104/51
[2022-08-24 14:19] VITALS: BP 104/51
--- NOTE | 2022-08-24 15:58 | Progress Note-Post Operative ---
Post-Operative Progess Note Surgeon (s)/Vocational Counselor (s) Surgeon SURI CAUSEY MD Vocational Counselor: none Pre-Operative Diagnosis dysphagia with esoph and pyloric stricture Post-Operative Diagnosis reflux esophagitis(grade B-C) with mild dist esoph stricture, severe antral stricture. Procedure & Operative Findings Date of Procedure 08/24/22 Procedure Performed/Findings EGD with balloon dilatation stomach and esophagus. Anesthesia Type mac Estimated Blood Loss Estimated blood loss (mL): minimal Specimens/Packing Specimens Removed none SURI CAUSEY MD Aug 24, 2022 15:58
--- NOTE | 2022-08-24 17:17 | OPERATIVE REPORT ---
DATE OF SERVICE: 08/24/2022 ATTENDING PRIMARY WASTE WATER WORKER: RIO Ryder PREOPERATIVE DIAGNOSES: Dysphagia with history of lower esophageal stricture and pyloric stricture. POSTOPERATIVE DIAGNOSES: Reflux esophagitis, [place] grade C with a mild to moderate distal esophageal stricture, no hiatal hernia, moderate gastritis, pyloric stricture. PROCEDURE: EGD with balloon dilatation of the pylorus and the gastroesophageal junction both to 18.0 mm in luminal diameter. SURGEON: Suri Causey MD ANESTHESIA: Monitored anesthesia care. ESTIMATED BLOOD LOSS: Minimal. FINDINGS: Reflux esophagitis, [place] grade C with a mild to moderate distal esophageal stricture, no hiatal hernia, moderate gastritis, pyloric stricture. DISPOSITION: The patient tolerated the procedure well. INDICATIONS: The patient is a 72-year-old female known to us. She noticed weight loss and had reported a longstanding history of gastroesophageal reflux disease. She also developed significant dysphagia and underwent an EGD on 05/26/2022 and was found to have a distal esophageal stricture as well as a severe pyloric stricture. She underwent balloon dilatation of both of these strictures to approximately 17 mm. We had her follow up on 07/27/2022 and again the strictures were significant, especially the one at the pylorus. We were able to dilate a 17.5 mm in diameter. Due to the severe nature of the pyloric stricture, we recommended continued dilatation until we reached 20 mm. However, if endoscopic means were not effective for long-term enough, she may need drainage procedure and this was explained to the patient in depth. We will proceed with a repeat dilatation. DESCRIPTION OF PROCEDURE: The patient was brought to the endoscopy suite and laid in the left lateral decubitus position. After adequate IV pain and sedative medications and monitored anesthesia care, the mouthpiece was applied. Endoscope was placed in the mouth, visualizing the pharynx and hypopharyngeal region. Vocal cords, epiglottis and vallecula identified and appeared to be normal. The endoscope was then gently intubated in the esophageal opening and esophagus was insufflated. The endoscope was then advanced into the first, second and third portions of the esophagus to the level of the GE junction. Reflux esophagitis, [place] grade C identified with a [id number] distal esophageal stricture. The endoscope was then advanced into the stomach and endoscope retroflexed visualizing no hiatal hernia. There was a moderate severity gastritis as well as again a severe pyloric stricture. The endoscope was then placed at the area of the stricture and the balloon placed into the pylorus under direct visualization. We then proceeded with dilatation in a graded fashion from 2-4, then eventually 6 atmospheres of pressure or 18 mm in luminal diameter with moderate resistance and left this in place for 120 seconds. The balloon was desufflated and removed with visualization of good hemostasis as well as no mucosal tears. The balloon was then pulled back to the area of the distal esophageal stricture. We then proceeded in a grade mullen fashion from 2-4, then eventually 6 atmospheres of pressure or 18 mm in luminal diameter with moderate resistance and left this in place for 60 seconds. The balloon was then desufflated and removed with visualization of good hemostasis as well as no mucosal tears. Endoscope was then slowly withdrawn while taking a second look and suctioning of residual air with no additional findings. The patient tolerated the procedure well. We will recommend continued medical management and see how she does from a standpoint of improvement in dysphagia and if this is the case, we will continue with dilatation; however, if she continues to have symptomatic dysphagia, we would likely refer her to a specialist that does do endoscopic laparoscopic antrectomy and [place] I or II reconstruction versus a Heineke-Mikulicz pyloroplasty as well as a possible truncal vagotomy versus a highly selective vagotomy. Job ID: [id number] DocumentID: [id number] Dictated Date: 08/24/2022 13:23:52 Middle School Librarian Date: 08/24/2022 17:15:00 Dictated By: SURI CAUSEY MD MTDD
== END 2022-08-24 14:19 | disposition home or self-care (01) ==
LOC: ENDO 10:16
PROVIDERS: ATTEND Surgery
DX: K22.2 Esophageal obstruction (principal); K21.00 Gastro-esophageal reflux disease with esophagitis, without bleeding; K31.1 Adult hypertrophic pyloric stenosis; K29.70 Gastritis, unspecified, without bleeding; K21.9 Gastro-esophageal reflux disease without esophagitis